=== PATIENT | male | born 1940 | race Caucasian/White ===

== ENCOUNTER 2016-07-01 08:16 | Inpatient (IN) | payer MEDICARE, OTHER ==
[~2016-07-01] VITALS: Ht 172.7 cm; Wt 64.2 kg
[2016-07-01] VITALS (518 sets, daily range): BP systolic 101–136; BP diastolic 54–71; PULSE 66–76; TEMP 97.4–98.6; O2SAT 69–100
[~2016-07-01 08:16] MED LIST: APRESOLINE 25MG25 MG PO; ASPI325T6 PO; ASPIRIN 81M81 MG/TA2 PO; ASPIRIN E.C. 8181 MG PO; CEPHALEXIN500 M1 PO; CPAP; FLONASEALLERGY NS; LASIX 40MG TABL40 MG PO; LIPITOR 40MG TA40 MG PO; LOPRESSOR 550 MG/TAB PO; MULTIPLE VITAMI1 CAP PO; NITRO-DUR0.4 MG/PAT TD; NORVASC 10MG10 MG PO; OMEGA-31 SGL PO; PERCOCET 325 MG1 TA2 PO; PRIL40 PO; SINGULAIR 110 MG/TAB PO; TRICOR145 MG PO; ULTRACET TABL1 UDTAB PO; ZOFRAN 4MG T4 MG/TAB PO; ZYLOPRIM 100MG100 MG PO
[2016-07-01 09:12] LABS: MEAN CELL VOLUME 75 fl (80.0-100.0); MEAN CORPUSCULAR HGB CONC 29 g/dl (33.0-37.0); MEAN PLATELET VOLUME 10.9 fl (7.4-10.4); PLATELET COUNT 220 K/mm3 (130-400); RED BLOOD COUNT 2.78 M/mm3 (4.20-5.60); REDCELL DISTRIBUTION WIDTH-CV 16.4 % (11.5-14.5); WHITE BLOOD COUNT 6.8 K/mm3 (4.8-10.8)
[2016-07-01 09:17] LABS: ADJUSTED CALCIUM 9.6 mg/dL (8.4-10.2); ALBUMIN 2.8 gm/dL (3.5-5.0); BILIRUBIN,TOTAL 0.4 mg/dL (0.0-1.0); CALCIUM 8.6 mg/dL (8.4-10.2); CREATININE, serum 1.65 mg/dL (0.66-1.25); POTASSIUM 4.6 mmol/L (3.4-5.0); TOTAL PROTEIN 5.3 gm/dL (6.4-8.2)
[2016-07-01 09:21] LABS: HEMATOCRIT 20.9 % (42.0-52.0); MEAN CORPUSCULAR HEMOGLOBIN 22 pg (27.0-31.0)
[2016-07-01 09:29] LABS: TROPONIN-I 0.015 ng/mL (0.000-0.034)
[2016-07-01] MEDS ORDERED: ZIAC 10/6.25M1 UDTAB PO (09:44)
[2016-07-01] MEDS ORDERED: MUCINEX 60600 MG/TA1 PO (09:45)
[2016-07-01] MEDS ORDERED: IMODIUM 2MG CAPS2 MG PO (09:45)
[2016-07-01] MEDS ORDERED: HYTRIN 1MG C1 MG/CAP PO (09:46)
[2016-07-01] MEDS ORDERED: PLAVIX 75MG TAB75 MG PO (09:46)
[2016-07-01] MEDS ORDERED: NORVASC 5MG5 MG/TAB PO (09:47)
[2016-07-01 09:51] LABS: BAND 5 % (0-10); BASOPHIL 2 % (0-2); EOSINOPHIL 3 % (0-4); NEUTROPHILS 72 % (42.0-75.2); PLATELET ESTIMATE NORMAL (NORMAL); TOTAL CELLS COUNTED 100
[2016-07-01 09:52] LABS: ANISOCYTOSIS 2+
[2016-07-01 09:59] LABS: ACANTHOCYTES 3+; HYPOCHROMIA 2+; MICROCYTOSIS 2+; POIKILOCYTOSIS 3+; SCHISTOCYTES 1+
[2016-07-01 10:01] LABS: ADD PATHOLOGY DIFF REVIEW YES; OVALOCYTES 2+
[2016-07-01 12:03] LABS: PH 5 (5-8); SQUAMOUS EPITHELIAL None Seen /hpf; URINE APPEARANCE Clear; URINE BACTERIA None Seen /hpf; URINE BILIRUBIN Negative (NEGATIVE); URINE BLOOD Negative (NEGATIVE); URINE COLOR Yellow; URINE GLUCOSE Negative (NEGATIVE); URINE KETONE Negative (NEGATIVE); URINE RBC 0-2 /hpf; URINE UROBILINOGEN Negative (NEGATIVE); URINE WBC 0-2 /hpf
[2016-07-01 21:07] LABS: HEMATOCRIT 21.3 % (42.0-52.0); HEMOGLOBIN 6.7 g/dl (13.5-18.0)
[2016-07-02] VITALS (482 sets, daily range): BP systolic 98–137; BP diastolic 47–74; PULSE 60–84; TEMP 97.5–98.6; O2SAT 89–100
[2016-07-02 01:35] LABS: HEMOGLOBIN 7.5 g/dl (13.5-18.0)
[2016-07-02 04:18] LABS: HEMOGLOBIN 7.4 g/dl (13.5-18.0)
[2016-07-02 04:28] LABS: CREATININE, serum 1.74 mg/dL (0.66-1.25); MAGNESIUM 1.6 mg/dL (1.6-2.3); POTASSIUM 4.9 mmol/L (3.4-5.0)
[2016-07-02 13:35] LABS: HEMATOCRIT 22.2 % (42.0-52.0); HEMOGLOBIN 6.9 g/dl (13.5-18.0)
[2016-07-02 21:56] LABS: HEMATOCRIT 21.6 % (42.0-52.0)
[2016-07-02 21:58] LABS: HEMOGLOBIN 6.9 g/dl (13.5-18.0)
[2016-07-03] VITALS (14 sets, daily range): BP systolic 109–143; BP diastolic 44–96; PULSE 63–79; TEMP 97.3–98.3
[2016-07-03 06:20] LABS: BASO % 0.5 % (0.0-2.0); EOS # 0.1 (0.0-0.7); EOS % 1.9 % (0-4.0); GRAN # 5.7 (1.4-6.5); GRAN % 75.9 % (42.2-75.2); LYMPH # 0.9 (1.2-3.4); LYMPH % 11.7 % (20.0-51.0); MEAN CORPUSCULAR HGB CONC 32 g/dl (33.0-37.0); MEAN PLATELET VOLUME 10.5 fl (7.4-10.4); MONO # 0.7 (0.1-0.6); MONO % 9.7 % (1.7-9.3); PLATELET COUNT 143 K/mm3 (130-400); RED BLOOD COUNT 2.75 M/mm3 (4.20-5.60); REDCELL DISTRIBUTION WIDTH-CV 17.9 % (11.5-14.5); WHITE BLOOD COUNT 7.5 K/mm3 (4.8-10.8)
[2016-07-03 06:23] LABS: HEMOGLOBIN 7.4 g/dl (13.5-18.0); MEAN CELL VOLUME 84 fl (80.0-100.0); MEAN CORPUSCULAR HEMOGLOBIN 27 pg (27.0-31.0)
[2016-07-03 06:40] LABS: CALCIUM 7.6 mg/dL (8.4-10.2); CREATININE, serum 1.8 mg/dL (0.66-1.25); MAGNESIUM 1.7 mg/dL (1.6-2.3); POTASSIUM 4.4 mmol/L (3.4-5.0)
[2016-07-03 08:58] LABS: PATHOLOGY DIFF REVIEW OK
[2016-07-03 16:14] LABS: HEMATOCRIT 21.7 % (42.0-52.0); HEMOGLOBIN 6.9 g/dl (13.5-18.0)
[2016-07-04 01:10] VITALS: BP 141/75; PULSE 82; TEMP 98.3
[2016-07-04 05:51] VITALS: BP 130/67; PULSE 67; TEMP 98.6
[2016-07-04 08:52] LABS: MEAN CELL VOLUME 85 fl (80.0-100.0); MEAN CORPUSCULAR HGB CONC 32 g/dl (33.0-37.0); MEAN PLATELET VOLUME 10.6 fl (7.4-10.4); PLATELET COUNT 137 K/mm3 (130-400); RED BLOOD COUNT 2.97 M/mm3 (4.20-5.60); REDCELL DISTRIBUTION WIDTH-CV 17.8 % (11.5-14.5); WHITE BLOOD COUNT 5.7 K/mm3 (4.8-10.8)
[2016-07-04 08:58] LABS: HEMATOCRIT 25.1 % (42.0-52.0); HEMOGLOBIN 7.9 g/dl (13.5-18.0); MEAN CORPUSCULAR HEMOGLOBIN 27 pg (27.0-31.0)
[2016-07-04 08:59] LABS: ADD PATHOLOGY DIFF REVIEW NO
[2016-07-04 09:26] LABS: CALCIUM 7.9 mg/dL (8.4-10.2); CREATININE, serum 1.74 mg/dL (0.66-1.25); POTASSIUM 4.4 mmol/L (3.4-5.0)
[2016-07-04 09:41] VITALS: BP 132/73; PULSE 68; TEMP 97.7
[2016-07-04 09:53] LABS: BAND 7 % (0-10); BASOPHIL 1 % (0-2); EOSINOPHIL 2 % (0-4); NEUTROPHILS 71 % (42.0-75.2); TOTAL CELLS COUNTED 100
[2016-07-04 09:54] LABS: ANISOCYTOSIS 2+; HYPOCHROMIA 1+; OVALOCYTES 1+; PLATELET ESTIMATE NORMAL (NORMAL)
[2016-07-04 09:55] LABS: POIKILOCYTOSIS 1+
[2016-07-04] MEDS ORDERED: FERROUS SU325 MG/TAB PO (10:09)
[2016-07-04] MEDS ORDERED: PROTONIX 40MG T40 MG PO (10:13)
[2016-07-04 13:35] VITALS: BP 103/54; BP 107/56; BP 109/68; PULSE 72; PULSE 78; PULSE 81
[2016-07-04 14:01] VITALS: BP 118/52; PULSE 77; TEMP 98.1
== END 2016-07-04 16:33 | disposition home health service (06) | DRG 378 ==
LOC: COL.ER 08:16 → SURG 09:52 → ICU 09:52 → SURG 07-02 15:35
PROVIDERS: Emergency Medicine; Family Medicine; Internal Medicine; Internal Medicine Gastroenterology; Nurse Practitioner Family
PROC: 0W3P8ZZ Control Bleeding in Gastrointestinal Tract, Via Natural or Artificial Opening Endoscopic (ICD-10-PCS; principal; 2016-07-02 09:00)
DX: K25.4 Chronic or unspecified gastric ulcer with hemorrhage (principal); I50.22 Chronic systolic (congestive) heart failure; I13.0 Hypertensive heart and chronic kidney disease with heart failure and stage 1 through stage 4 chronic kidney disease, or unspecified chronic kidney disease; D62 Acute posthemorrhagic anemia; Z86.73 Personal history of transient ischemic attack (TIA), and cerebral infarction without residual deficits; I25.10 Atherosclerotic heart disease of native coronary artery without angina pectoris; N18.9 Chronic kidney disease, unspecified; Z87.891 Personal history of nicotine dependence; I73.9 Peripheral vascular disease, unspecified
CPT/HCPCS: 99223-AI; 99232-AI; 99233-AI; 99239; C9113; J2250; J2405; J3010; J7040; P9016